=== PATIENT | male | born 1990 | race Caucasian/White ===

== ENCOUNTER 2024-02-17 00:43 | Emergency (ER) | payer MEDICAID ==
[~2024-02-17] VITALS: Ht 177.8 cm; Wt 78.0 kg
[2024-02-17 01:20] VITALS: O2SAT 100
[2024-02-17 01:21] VITALS: BP 124/74; PULSE 111; RESP 15; TEMP 36.83628; O2SAT 98
[2024-02-17] MEDS ORDERED: AMOX1TAB16 MT (04:16)
[2024-02-17] MEDS: CEFTRIAXONE SODIUM 1G VIAL IM ONE (04:41)
== END 2024-02-17 05:18 | disposition home or self-care (01) ==
LOC: ER 00:43
DX: L03.114 Cellulitis of left upper limb (principal)
CPT/HCPCS: 99283; 96372; J0696